=== PATIENT | female | born 1945 | race Caucasian/White ===

== ENCOUNTER 2017-10-17 08:08 | Inpatient (IN) | payer OTHER, MEDICARE ==
[~2017-10-17] VITALS: Ht 167.6 cm; Wt 57.6 kg
--- NOTE | 2017-10-17 08:20 | ED GENERAL ADULT ---
History of Present Illness General Chief Complaint: Nausea, Vomiting, Diarrhea Stated Complaint: NAUSEA Source: patient, EMS Exam Limitations: no limitations Vital Signs & Intake/Output Vital Signs & Intake/Output Vital Signs Date Time Temp Pulse Resp B/P B/P Pulse O2 O2 Flow FiO2 Mean Ox Delivery Rate 10/17 1415 97.8 85 20 184/91 95 Room Air 10/17 1138 170/90 10/17 1118 97.6 72 22 193/98 94 Room Air 10/17 0932 94 Room Air 10/17 0813 77 16 188/91 93 Room Air Allergies Coded Allergies: Penicillins (UNKNOWN 10/17/17) Reconcile Medications Ascorbic Acid (Vitamin C) 1,000 MG TABLET 1 TAB PO D SUPPLEMENTAL (Reported) Aspirin (Ecotrin*) 81 MG TABLET.DR 1 TAB PO DAILY HEART HEALTH (Reported) Calcium Carbonate/Vitamin D3 (Os-Lupillo 500+D3 Caplet) 500 MG-200 TABLET 1 TAB PO DAILY SUPPLEMENTAL (Reported) Cyanocobalamin (Vitamin B-12) (Vitamin B12) 2,500 MCG TABLET 1 TAB PO D SUPPLEMENTAL (Reported) Triage Note: PT BIBA FROM HOME C/C 1 WEEK HX OF NAUSEA AND INT VOMITING. DENIES C/P, SOB, OR ABD PAIN. PT STATES SHE HAS NOT BEEN TO A MEDICAL PROVIDER IN OVER 20 YEARS, NO KNOWN MEDICAL HX. PER PT SHE HAS NOT EATEN YET TODAY, FSG 216 PER EMS. Triage Nurses Notes Reviewed? yes HPI: Patient is a 72-year-old female with family history of diabetes in her son, but who has not visited a physician in many decades and thus reports no past medical history that she is aware of, who is brought in today by EMS with nausea and vomiting. She denies any saroj chest pain, dyspnea, diaphoresis, chest pressure , or any other classically cardiac features, and she also denies any true focal intra-abdominal pain. Upon my initial encounter the patient is clearly uncomfortable, vomiting into an emesis bag. Past the symptoms mentioned above, she is unable to give any further details of her HPI or review of systems secondary to her distress. Past History Travel History Traveled to [place] past 21 day No Medical History Any Pertinent Medical History? none Surgical History Surgical History: none Psychosocial History What is your primary language [place] Tobacco Use: Current Daily Use Daily Tobacco Use Amount/Type: => 5 Cigarettes daily Family History Hx Contributory? No Review of Systems Review of Systems Constitutional: Reports: weakness. Denies: chills, diaphoresis, fever, malaise. EENTM: Reports: no symptoms. Respiratory: Reports: no symptoms. Cardiovascular: Denies: chest pain, palpitations, peripheral edema, syncope. GI: Reports: nausea, vomiting. Denies: abdominal pain, bloating, constipation, diarrhea, distention, bowel incontinence. Genitourinary: Reports: no symptoms. Musculoskeletal: Reports: no symptoms. Skin: Reports: no symptoms. Neurological/Psychological: Reports: no symptoms. Hematologic/Endocrine: Reports: no symptoms. Immunologic/Allergic: Reports: no symptoms. All Other Systems: Reviewed and Negative Physical Exam Physical Exam General Appearance: moderate distress Comments: Gen.: Elderly female actively vomiting and in moderate distress secondary to back. HEENT: Cerumen impaction of the left auditory canal, normal right-sided auditory canal. Inspection of the head reveals a normocephalic cranium with no signs of trauma. Ophtho: Extraocular muscles are intact and pupils are equal and reactive to light bilaterally with no afferent pupillary defect. The sclera are noninjected , and there is no obvious discharge. Neck: The trachea is midline, there is no obvious asymmetry or mass over the thyroid, and there is no midline cervical spine tenderness Respiratory: The lungs are clear and equal to auscultation bilaterally without wheezes, rales, or rhonchi. The patient exhibits no signs of labored breathing. Cardiac: Regular rhythm and non-tachycardic without appreciable murmurs on auscultation. No obvious JVD. GI: Actively vomiting. Examination of the abdomen reveals no significant focal tenderness in any of the four quadrants. There is negative Aldana's sign, negative McBurney's point tenderness, negative Goodwin sign, negative Rodríguez-Crump sign, and no signs of peritonitis whatsoever on percussion or deep palpation. The skin is intact with no sign of trauma or infection. : Deferred Neuro: The patient is oriented to person, place, time, and situation, with no obvious focal motor deficits. There were no sensory deficits, and the patient exhibit purposeful movement of all 4 extremities. Cranial nerves II through XII are intact, and gait is normal. Behavioral: Calm and cooperative Dermatologic: Dermatologic examination reveals no diffuse rashes or exanthems, no petechiae, no ecchymoses, and no other signs of erythema or infection. Core Measures ACS in differential dx? Yes CVA/TIA Diagnosis: No Sepsis Present: No Sepsis Focused Exam Completed? Yes Progress Differential Diagnoses I considered the following diagnoses in my evaluation of the patient: Posterior circulation stroke, intracerebral hemorrhage, ischemic stroke, benign peripheral vertigo, Acute coronary syndrome, STEMI, non-STEMI, Prinzmetal angina, intra- abdominal pathology, biliary disease, pancreatitis, sepsis, among multiple other possibilities. Plan of Care: Orders Procedure Date/time Status URINALYSIS 10/17 814 Active TROPONIN LEVEL 10/17 814 Complete LIPASE 10/17 814 Complete COMPREHENSIVE METABOLIC PANEL 10/17 814 Complete CBC WITHOUT DIFFERENTIAL 10/17 814 Complete EKG 10/17 814 Active Current Medications Sig/Susanna Start time Last Medication Dose Stop Time Status Admin Diazepam 5 MG ONCE ONE 10/17 1214 CAN (Valium) 10/17 121 Laboratory Tests 10/17/17 0822: Anion Gap 11, Estimated GFR > 60, BUN/Creatinine Ratio 21.4, Glucose 198 H, Calcium 9.6, Total Bilirubin 0.6, AST 23, ALT 26, Alkaline Phosphatase 80, Troponin I < 0.01, Total Protein 7.5, Albumin 4.5, Globulin 3.0, Albumin/ Globulin Ratio 1.5, Lipase 71, CBC w Diff NO MAN DIFF REQ, RBC 5.03, MCV 85.8, MCH 30.0, MCHC 35.0, RDW 13.4, MPV 7.4, Gran % 72.5, Lymphocytes % 21.0, Monocytes % 4.6, Eosinophils % 1.3, Basophils % 0.6, Absolute Granulocytes 6.3, Absolute Lymphocytes 1.8, Absolute Monocytes 0.4, Absolute Eosinophils 0.1, Absolute Basophils 0 Initial ED EKG: ecg PERFORMED AT 8:25 am READILY 20 8 am, SINUS RHYTHM, INCOMPLETE RIGHT BUNDLE BRANCH BLOCK, pr, qrs, qtC INTERVALS ALL NORMAL, RATE 70 , NONSPECIFIC BIPHASIC t WAVES IN v4 THROUGH v6, NO PRIOR AVAILABLE FOR COMPARISON. Comments: Patient is elderly and presented for gradually worsening dizziness over the past week. I found this concerning for posterior circulation deficit. No prior stroke syndrome, however the patient had not been evaluated by a PCP in quite some time. Repeat laboratory studies and a CT scan which was unremarkable. Her examination was not illustrative enough to diagnose her with benign peripheral vertigo, so out of an abundance of caution I obtained a stat MRI of the brain. Thickly, these results were negative. I reassessment, despite a dosage of meclizine, the patient had no improvement in her symptoms. We found her unable to ambulate safely, or even sit up without profound symptoms. Patient ultimately required hospitalization for this reason, for possible ENT and physical therapy consultation to assist with diagnosis and Nirmala maneuver, respectively. Departure Departure Time of Disposition: 1834 Disposition: STILL A PATIENT Condition: Fair Clinical Impression Primary Impression: Vertigo Departure Forms: Customer Survey General Discharge Information Admission Note Spoke With: Jovita Amato MD Documentation of Exam: Documentation of any treatments & extenuating circumstances including Concerns Regarding Discharge (functional status, medication knowledge or non-compliance, living conditions, etc.) that warrant an admission rather than observation: I performed a detailed evaluation in the emergency department today including CT and MRI to rule out posterior circulation deficit as a cause of the patient's insidious dizziness. Safely, that workup was negative. However, despite meclizine trials, the patient was completely unable to sit up let alone ambulate at reassessment. I feel that she poses an unacceptably high risk of fall with secondary traumatic injury if she were to be discharged home, and thus the patient was hospitalized for further medical care. Critical Care Note Critical Care Note Critical Care Time: 30-74 min Comments: Critical care time spent > 25 minutes. The patient was suffering from a critical illness that acutely impairs one or more vital organ systems and there is a high probability of imminent or life threatening deterioration in the patient's condition. During this time I was personally involved in activities including direct delivery of medical care, consulting multiple specialists, and decision making of high complexity to assess, manipulate, and support vital organ system failure (in this case, ruling out acute CVA with advanced imaging in the ED) and /or to prevent further life threatening deterioration of the patient's condition. The failure to initiate these interventions on an urgent basis would likely result in sudden, clinically significant or life threatening deterioration in the patient's condition.
[2017-10-17 08:32] LABS: ABSOLUTE BASOPHIL COUNT 0 /CUMM (0.0-0.2); ABSOLUTE EOSINOPHIL COUNT 0.1 /CUMM (0.0-0.7); ABSOLUTE GRANULOCYTE CT 6.3 /CUMM (1.4-6.5); ABSOLUTE LYMPH COUNT 1.8 /CUMM (1.2-3.4); ABSOLUTE MONOCYTE COUNT 0.4 /CUMM (0.10-0.60); BASOPHIL % 0.6 % (0.0-2.0); EOSINOPHIL % 1.3 % (0-5); GRANULOCYTE % 72.5 % (42.2-75.2); HEMATOCRIT 43.2 % (37-47); MEAN CORPUSCULAR VOLUME 85.8 FL (81.0-99.0); MEAN PLATELET VOLUME 7.4 FL (7.4-10.4); PLATELET COUNT 237 /CUMM (130-400); RBC DISTRIBUTION WIDTH 13.4 % (11.5-14.5); RED BLOOD CELL CT 5.03 /CUMM (4.20-5.40); WHITE BLOOD CELL COUNT 8.6 /CUMM (4.8-10.8)
--- NOTE | 2017-10-17 09:03 | RADIOLOGY REPORT ---
EXAMINATION: XR CHEST CLINICAL INFORMATION: Nausea. COMPARISON: None TECHNIQUE: 2 views of the chest were obtained. FINDINGS: Both lungs are fairly well-expanded and clear. The heart size and pulmonary vascularity is normal. No gross bony abnormality seen. IMPRESSION: Unremarkable chest exam.
[2017-10-17] MEDS ORDERED: VITAMIN C1000 M4 PO (11:22)
[2017-10-17] MEDS ORDERED: ASPIRIN EC81 M1 PO (11:22)
[2017-10-17] MEDS ORDERED: OS-CAL 500+D31 EAC1 PO (11:23)
[2017-10-17] MEDS ORDERED: VITAMIN B122500 MC1 PO (11:24)
--- NOTE | 2017-10-17 15:08 | CT SCAN REPORT ---
EXAMINATION: CT HEAD WITHOUT CONTRAST CLINICAL INFORMATION: Gradually worsening dizziness. COMPARISON: None. TECHNIQUE: Contiguous axial imaging was performed from the skull base to vertex without intravenous administration of contrast. DLP: 593.93 mGy-cm FINDINGS: Multiple metallic streaking artifacts from the earrings limit the evaluation on few of the images at the skull base. No acute intracranial hemorrhage, midline shift or mass effect is noted. There is no evidence of acute territorial infarction. Menon to white matter differentiation is well preserved. No abnormal extra-axial fluid collection. There is mild global volume loss with proportionate dilatation of the ventricles and cortical sulci. No hydrocephalus. A small hypodensity noted in the right frontal periventricular white matter (series 2 image 30) likely representing sequela of prior vascular insult. Mild periventricular white matter low-attenuation changes are noted reflecting sequela of chronic microangiopathy. The visualized paranasal sinuses and mastoid air cells are well aerated. The osseous calvarium is intact. IMPRESSION: No acute intracranial abnormality. 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
--- NOTE | 2017-10-17 18:18 | MRI REPORT ---
EXAMINATION: MR BRAIN WITHOUT AND WITH CONTRAST CLINICAL INFORMATION: 72-year-old woman with dizziness. COMPARISON: 10/17/[address] TECHNIQUE: MRI of the brain was obtained using routine sequences before and after the intravenous administration of 6 mL of Gadavist. FINDINGS: There is a nearly 2 cm heavily calcified mixed signal intensity lesion in the left cerebellum with associated enhancement, presumably representing a cavernous angioma, perhaps with a small nearby developmental venous anomaly. There is some surrounding gliotic change with atrophy of the left middle cerebellar peduncle, perhaps due to prior hemorrhage. Moderate chronic microvascular ischemic changes are seen throughout the supratentorial white matter with an area of chronic lacunar infarction in the right frontal lobe. The ventricles and sulcal spaces are mildly prominent due to chronic volume loss. No focal reduced diffusion is seen to suggest acute or subacute cerebral ischemia. No midline shift or extra-axial collection is visualized. The ventricles and sulcal spaces appear normal. Normal arterial and venous vascular flow voids are present. The paranasal sinuses are well aerated. IMPRESSION: No evidence of acute cerebral ischemia or hemorrhage. Chronic changes as described.
--- NOTE | 2017-10-17 19:35 | History & Physical ---
General Information and HPI MD Statement: I have seen and personally examined CHILO PATEL and documented this H&P. The patient is a 72 year old F who presented with a patient stated chief complaint of [nausea and vomiting]. Source of Information: patient, EMS Exam Limitations: no limitations History of Present Illness: Patient is 72 F reporting no PMH (as never saw a doctor for long time) was BIBA to the ED with CC of nausea, vomiting and diarrhea. Allergies/Medications Allergies: Coded Allergies: Penicillins (UNKNOWN 10/17/17) Home Med list Ascorbic Acid (Vitamin C) 1,000 MG TABLET 1 TAB PO D SUPPLEMENTAL (Reported) Aspirin (Ecotrin*) 81 MG TABLET.DR 1 TAB PO DAILY HEART HEALTH (Reported) Calcium Carbonate/Vitamin D3 (Os-Lupillo 500+D3 Caplet) 500 MG-200 TABLET 1 TAB PO DAILY SUPPLEMENTAL (Reported) Cyanocobalamin (Vitamin B-12) (Vitamin B12) 2,500 MCG TABLET 1 TAB PO D SUPPLEMENTAL (Reported) Past History Travel History Traveled to [place] past 21 day No Surgical History Surgical History: none Assessment/Plan Assessment: VS, Ph Ex at admission: Labs at admission: Imagings at admission: Patient was admitted to telemetry floor for management of following conditions: Core Measures/Misc (02/13) Cerebrovascular Accident CVA/TIA Diagnosis: No
--- NOTE | 2017-10-17 20:45 | History & Physical ---
Ulices WHITLOCK,Diann 10/17/172044: General Information and HPI MD Statement: I have seen and personally examined CHILO PATEL and documented this H&P. The patient is a 72 year old F who presented with a patient stated chief complaint of [nausea and vomiting]. Source of Information: patient, EMS Exam Limitations: no limitations History of Present Illness: 72 years old female with no known PMH who presents to [facility] brought in by her son c/o of nausea, vomiting. The patient was very sedated and sleepy during the encounter as she recieved a dose of IV Ativan 2 mg IV in the ED. The patient mentioned that she was in her usual state of health until 2 days ago when she noticed loss of hearing in the left ear associated with ringing which is started on the left ear and then she felt that in the right ear. She was trying to clean her ears using cotton balls and clinics at that time she denies any discharge or ear ache or fever or chills. Today while the patient was preparing lunch she did not feel well she started. feeling increasingly dizzy, vomited a few times she also reports feeling spinning of her surroundings which improved when she lie down and when she closes her eyes is not related to changes of head position. Patient also reports runny nose for the past few days which she she thinks is due to allergy. Patient denies any fever, chills, chest pain, cough, diarrhea or constipation. She also denies any focal weakness or numbness. The patient denies any past medical history however she reports having gamma knife surgery in year [place] in 2011 but she cannot recall why. She lives home with her son, independent at baseline, reports smoking 1 pack of cigarettes daily for 15 years, occasional alcohol use, denies recreational drug use ED course: Vital signs on admission: Blood pressure 188/91, pulse 77, respiratory 16, pulse ox 93 on room air Labs on admission: CBCT was within normal limits,bep shows sodium 142, potassium 3.9, BUN 15, creatinine 0.7, glucose 198, AST 23, ALT 26, troponin less than 0.01, lipase 71, UA showed urine protein 100, urine ketones 15, few bacteria Head MRI:No evidence of acute cerebral ischemia or hemorrhage. Chronic changes as described. Head CT:No acute intracranial abnormality. 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 Chest x-ray:Unremarkable chest exam. Patient received 1 dose of IV Ativan 2 mg, meclizine, Zofran 4 mg IV 2 Allergies/Medications Allergies: Coded Allergies: Penicillins (UNKNOWN 10/17/17) Home Med list Ascorbic Acid (Vitamin C) 1,000 MG TABLET 1 TAB PO D SUPPLEMENTAL (Reported) Aspirin (Ecotrin*) 81 MG TABLET.DR 1 TAB PO DAILY HEART HEALTH (Reported) Calcium Carbonate/Vitamin D3 (Os-Lupillo 500+D3 Caplet) 500 MG-200 TABLET 1 TAB PO DAILY SUPPLEMENTAL (Reported) Cyanocobalamin (Vitamin B-12) (Vitamin B12) 2,500 MCG TABLET 1 TAB PO D SUPPLEMENTAL (Reported) Past History Travel History Traveled to [place] past 21 day No Surgical History Surgical History: none Past Family/Social History Family History Relations & Conditions if any MOTHER FATHER Relation not specified for: FH: breast cancer FH: heart attack Psychosocial History Where do you live? Home Who Do You Live With? child Smoking Status: Current Everyday Smoker ETOH Use: occasional use Illicit Drug Use: denies illicit drug use Functional Ability ADLs Independent: dressing, eating, toileting, bathing. Ambulation: independent IADLs Independent: shopping, housework, finances, food prep, telephone, transportation , medication admin. Review of Systems Review of Systems Constitutional: Reports: malaise. Denies: chills, diaphoresis, fever. EENTM: Reports: hearing changes, nasal congestion. Denies: blurred vision, double vision, eye pain, ear discharge, ear pain, ear redness, throat pain. Cardiovascular: Denies: chest pain, edema, orthopena, palpitations, peripheral edema. Respiratory: Denies: no symptoms. GI: Denies: no symptoms. Genitourinary: Denies: no symptoms. Neurological/Psychological: Denies: other. Exam & Diagnostic Data Last 24 Hrs of Vital Signs/I&O Vital Signs Date Time Temp Pulse Resp B/P B/P Pulse O2 O2 Flow FiO2 Mean Ox Delivery Rate 10/17 2214 98.8 97 18 120/80 94 10/17 2106 98.8 100 16 157/67 95 Room Air 10/17 1922 98.3 93 16 172/78 95 Room Air 10/17 1415 97.8 85 20 184/91 95 Room Air 10/17 1138 170/90 10/17 1118 97.6 72 22 193/98 94 Room Air 10/17 0932 94 Room Air 10/17 0813 77 16 188/91 93 Room Air Intake & Output 10/17 1600 10/17 0800 10/17 0000 Intake Total 0 Output Total Balance 0 Intake, Oral 0 Patient 145 lb Weight Weight Reported by Patient Measurement Method Physical Exam General Appearance Cooperative HEENT Atraumatic, PERRLA, Mucous Membr. moist/pink, BILATERAL OPTHALMOPLEGIAN AND NYSTAGMUS Neck Supple, No JVD Cardiovascular Normal S1, Normal S2, No Murmurs Lungs Clear to Auscultation Abdomen Normal Bowel Sounds, Soft, No Tenderness Neurological Normal Speech, Strength at 5/5 X4 Ext, Normal Tone, Sensation Intact, NYSTAGMUS AND OPHTHALMOPLEGIA, DYSMETRIA , Extremities No Clubbing, No Cyanosis, Normal Pulses Vascular Normal Pulses Assessment/Plan Assessment: 72 years old female with no known PMH who presents to [facility] brought in by her son c/o of nausea, vomiting. The patient was very sedated and sleepy during the encounter as she recieved a dose of IV Ativan 2 mg IV in the ED. The patient mentioned that she was in her usual state of health until 2 days ago when she noticed loss of hearing in the left ear associated with ringing which is started on the left ear and then she felt that in the right ear. It was associated with nausea, vomiting, sense of spinning of the room. Patient also has history of runny nose for the past few days. She denies any fever or chills. Most likely her symptoms are due to acute vestibular neuritis Problem list: Vertigo lkely secondary to acute vestibulat neuritis) Plan: Admit to general medicine floor Vitals every shift Fall precautions Continue meclizine Start prednisone 60 mg p.o. daily for a quick taper Obtain medical record from the [facility] OT/PT eval for discharge planning Follow-up on U tox and alcohol level F/U on HbA1c, Vit B12, folic acid, VDRL CIWA monitoring Patient is full code Regular diet DVT prophylaxis with Lovenox As Ranked By This Provider Problem List: 1. Vertigo Core Measures/Misc (02/13) Cerebrovascular Accident CVA/TIA Diagnosis: No Mehdi Teixeira MD 10/17/172120: Core Measures/Misc (02/13) Acute Coronary Syndrome ACS Diagnosis: No Congestive Heart Failure Congestive Heart Failure Diagnosis No Cerebrovascular Accident CVA/TIA Diagnosis: No VTE (View Protocol) VTE Risk Factors Age>40 No Mechanical VTE Prophylaxis d/t N/A MechProphylax Ordered No VTE Pharm Prophylaxis d/t NA PharmProphylax ordered Sepsis (View protocol) Sepsis Present: No Resident Review Statement Resident Statement: examined this patient, discussed with program management intern, agreed with program management intern, reviewed EMR data (avail), discussed with nursing, reviewed images, amended to note Other Findings: 72 yo F with no known pmh is here for nausea, vomiting, and dizziness since two days. At the time of interview, she had received medications to treat her vertigo already so was drowsy towards the end, but comprehended the questions. Per patient, she was in her usual state of health until two days ago, when she felt "funny" in her left ear, had decreased hearing on left side, with ringing sensation, and earlier today she felt nauseaous after cooking at home, vomited twice (at least), and dizzy with feeling of room spinning around, better when she closed her eyes, no relation with position. She mentioned that she had runny nose (flu-like symptoms) few weeks ago. She was brought to the ED by her son, where she received Meclizine, and later Ativan IV (pharmacy did not have IV Diazepam per EMR), which helped her to some extent. Imaging was negative for acute stroke or mass, but she mentioned that she had undergone "gamma-knife procedure" at [facility] (?no documentation). Vitals initially high BP now normal, labs WNL, U tox normal, (EtOH level pending ), PE was significant for Right horizoltal nystagmus, no change with position, and dysmetria (finger nose test, but good propioception), normal heel knee test, and normal disdiadochokinesia, neuro normal otherwise, gait not examined. CVS, RS normal. She was at very high fall risk while trying to walk, so was admitted to the general medical floor for the management of following issues: #Acute vestibular neuritis Her symptoms are suggestive more of acute vestibular neuritis rather than BPPV, or acute stroke, so we will start her on oral prednisone (total ten days, day 1- 5 60 mg, then serially 40mg, 30 mg, 20mg, 10mg, 5mg). Meclizine started given her persistent symptoms, which is usually helpful for the short term, but if persistent symptoms despite meclizine after 48 hrs, ENT eval is warranted. Given her history, BPPV is less likely, also after meclizine, it interferes with results of PT eval. She would benefit from PT eval for discharge recs though. #Will check her HbA1c, Vit B12, folic acid, VDRL to rule out other causes that can cause neuropathy. #Housekeeping Diet: Heart healthy diet DVT ppx: SQ Lovenox Code status: Full code ICE contact: Her son (Joaquin Patel), tel no. in EMR Jovita Amato 10/18/17 0501: Attending MD Review Statement Attending Statement Attending MD Statement: examined this patient, discuss w/resident/PA/FRENCH PROFESSOR, agreed w/resident/PA/FRENCH PROFESSOR, reviewed EMR data (avail), reviewed images, amended to note Attending Assessment/Plan: CC: Dizziness PMH: None Patient came to ER for 2 day history of nausea, vomiting, ringing in her left ear with mild hearing loss and spinning sensation. She denied any pain in a year , ear discharge, presyncopal episode or falls. She feels unsteady and dizzy and is not able to walk appropriately. Initially when she came to ER even moving her head was giving her dizziness. She had some runny nose last few days but denies any fever, chills, sore throat, cough, expectoration, diarrhea. Patient has not seen any physician in long time. Patient received 2 mg IV Ativan in ER, and currently very sleepy and difficult to elicit history. Vitals: Temperature 97.6, pulse 77, RR 16, blood pressure 188/91, saturating 93% on room air. On exam: A O 3, cooperative, no acute distress, nystagmus, patient has gaze abnormality, neck supple, JVD normal, no lymphadenopathy, mucosa moist, no focal neurological deficit, cerebellar signs negative, no dependent edema, no obvious skin rashes or inflammation CVS: S1-S2, RRR. RS: Clear to auscultate bilaterally. Abdomen: Soft, NT, ND, bowel sounds present. CXR: Unremarkable chest exam CT head: No acute intracranial abnormality. 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 MRI head: No evidence of acute cerebral ischemia or hemorrhage. Chronic changes as described. Assessment and plan 72 year old female with no previous past medical history, not seen any physician in a while [facility] for 2 day history of dizziness, spinning sensation, nausea, vomiting, tingling in her ear. She has nystagmus on examination but also has these abnormality otherwise complete neurological examination is unremarkable. According to ER notes initially she was severely dizzy even moving her head, she received Zofran, meclizine without relief. Later on she was given 2 mg of IV Ativan after that patient is very sleepy, it may be adding up to difficulty unsteady gaze, it is difficult to keep her awake throughout the conversation. I suspect patient has vestibular neuronitis. We'll continue meclizine, continue short course of oral prednisone, and reevaluate. + Vertigo: Suspected vascular neuronitis + Blood pressure is elevated but it could be one-time finding, we will follow closely - Admit to general medicine - Check U tox - Continue meclizine - Continue prednisone 40-60 mg per day for 5 days with taper - Check B12, HbA1c - Alcohol level - PT evaluation - DVT prophylaxis
[2017-10-17 22:14] VITALS: BP 120/80
--- NOTE | 2017-10-18 05:02 | Admission Certification ---
Admission Certification Certification Statement - As attending physician, I certify that at the time of - admission, based on clinical presentation, severity of - symptoms, need for further diagnostic testing and - therapeutic interventions, and risk of adverse outcomes - without in-hospital treatment, in my clinical assessment, - this patient requires an acute hospital stay for a minimum - of two nights or longer. I have also considered psychsocial - factors such as support system, advanced age, financial - issues, cognitive issues, and failed out-patient treatments, - past re-admission history, safety of patient, and lack of - compliance as applicable. Specific rationale supporting this admission is: Vertigo, suspected vestibular neuronitis
[2017-10-18 06:56] VITALS: BP 132/68
--- NOTE | 2017-10-18 07:22 | PN- Housestaff ---
Subjective Follow-up For: acute vestibulitis Subjective: Patient seen and examined. Sleeping was easily arousable. Reports continued dizziness, lightheadedness. She was reluctant to open her eyes or move her head because of vertigo like symptoms. Patient had recently worked with PT and Apley maneuver was done. Patient also reports being unsteady on her feet and feeling nauseous. Recent history of URI Review of Systems Constitutional: Reports: see HPI. Objective Last 24 Hrs of Vital Signs/I&O Vital Signs Date Time Temp Pulse Resp B/P B/P Pulse O2 O2 Flow FiO2 Mean Ox Delivery Rate 10/18 1000 97.0 80 20 130/70 95 Room Air 10/18 0656 97.9 73 16 132/68 95 Room Air 10/17 2214 98.8 97 18 120/80 94 10/17 2106 98.8 100 16 157/67 95 Room Air 10/17 1922 98.3 93 16 172/78 95 Room Air 10/17 1415 97.8 85 20 184/91 95 Room Air 10/17 1138 170/90 Intake & Output 10/18 1600 10/18 0800 10/18 0000 Intake Total 200 0 Output Total Balance 200 0 Intake, Oral 200 0 Patient 127 lb 127 lb Weight Weight Bed scale Measurement Method Physical Exam General Appearance: Alert, Oriented X3, Cooperative Cardiovascular: Normal S1, Normal S2 Lungs: Clear to Auscultation, Normal Air Movement Abdomen: Normal Bowel Sounds, Soft Neurological: Normal Speech, Strength at 5/5 X4 Ext, Normal Tone, Sensation Intact, Cranial Nerves 3-12 NL, Reflexes 2+, Horizontal nystagmus with fast component to left Extremities: No Cyanosis, No Edema, Normal Pulses Current Medications: Current Medications Sig/Susanna Start time Last Medication Dose Route Stop Time Status Admin Acetaminophen 650 MG Q6P PRN 10/17 2129 AC PO Acetaminophen 1,000 MG Q6P PRN 10/17 213 AC IV 10/18 2128 Aspirin Buffered 81 MG DAILY 10/18 09 AC 10/18 PO 0904 Diazepam 2 MG 4 TIMES/DAY PRN 10/18 1030 AC PO Diazepam 5 MG ONCE ONE 10/17 1930 DC IV 10/17 193 Diazepam 5 MG ONCE ONE 10/17 1215 CAN IV 10/17 1216 Enoxaparin Sodium 40 MG DAILY 10/18 09 AC 10/18 SC 0908 Lorazepam 2 MG ONE ONE 10/18 1999 DC 10/17 IV 10/17 Lorazepam 0 .STK-MED ONE 10/18 1955 DC .ROUTE Meclizine HCl 25 MG TID PRN 10/17 2229 AC 10/18 PO 0905 Meclizine HCl 0 .STK-MED ONE 10/17 1232 DC PO Meclizine HCl 25 MG ONCE ONE 10/17 1230 DC 10/17 PO 10/17 123 1231 Ondansetron HCl 4 MG ONCE ONE 10/18 1030 DC PO 10/18 1031 Ondansetron HCl 0 .STK-MED ONE 10/17 1232 DC .ROUTE Ondansetron HCl 4 MG ONCE ONE 10/17 1215 DC 10/17 IV 10/17 121 1231 Prednisone 60 MG DAILY 10/17 2229 AC 10/18 PO 10/21 0901 0904 Thiamine HCl 100 MG DAILY 10/19 0900 AC PO Thiamine HCl 200 MG ONCE ONE 10/18 0400 DC 10/18 PO 10/18 040 0522 Last 24 Hrs of Lab/Flip Results Last 24 Hrs of Labs/Mics: Laboratory Tests 10/18/17 0614: Anion Gap 12, Estimated GFR > 60, BUN/Creatinine Ratio 26.7 H, CBC w Diff NO MAN DIFF REQ, RBC 4.99, MCV 87.5, MCH 29.6, MCHC 33.8, RDW 13.3, MPV 8.0, Gran % 69.8, Lymphocytes % 22.0, Monocytes % 6.7, Eosinophils % 1.1, Basophils % 0.4, Absolute Granulocytes 6.3, Absolute Lymphocytes 2.0, Absolute Monocytes 0.6, Absolute Eosinophils 0.1, Absolute Basophils 0 10/17/17 1856: Urine Opiates Screen < 100, Methadone Screen < 40, Barbiturate Screen < 60, Ur Phencyclidine Scrn < 6.00, Amphetamines Screen < 100, U Benzodiazepines Scrn < 85, Urine Cocaine Screen < 50, Urine Cannabis Screen < 5.00, Urinalysis MOD H, Urine Color YEL, Urine Clarity CLEAR, Urine pH 7.0, Ur Specific [place] 1.025, Urine Protein 100 H, Urine Ketones 15 H, Urine Nitrite NEG, Urine Bilirubin NEG, Urine Urobilinogen 0.2, Ur Leukocyte Esterase NEG, Ur Microscopic SEDIMENT EXAMINED, Urine RBC 3-5, Urine WBC 1-3 H, Ur Epithelial Cells FEW, Urine Bacteria FEW H, Urine Mucus MOD H, Urine Hemoglobin NEG, Urine Glucose NEG Assessment/Plan Assessment: Patient is 72-year-old female with past medical history. She presented to [place] [facility] because of 2 day history of dizziness, spinning sensation, nausea, vomiting, tingling in her ear. The patient has been admitted to general medicine floor was being treated and evaluated for following conditions #Acute vertigo likely 2/2 acute vestibulitis (recent history of URI) -Antivertn 25 mg 3 times a day -Diazepam 2 mg 4 times a day as needed -Zofran to control nausea -Prednisone 60 mg daily for 5 days and then begin taper after that -Follow precaution -Continue Apley maneuver with PT #High BP readings intially on Auto cuff Manual readings within normal limits #Regular diet/DVT prophylaxis with Alps and Lovenox/FC Problem List: 1. Vertigo Pain Ratin Pain Location: none Pain Goal: Pain 4 or less Pain Plan: prn Tomorrow's Labs & Rationales: none
[2017-10-18 08:52] LABS: ABSOLUTE BASOPHIL COUNT 0 /CUMM (0.0-0.2); ABSOLUTE EOSINOPHIL COUNT 0.1 /CUMM (0.0-0.7); ABSOLUTE GRANULOCYTE CT 6.3 /CUMM (1.4-6.5); ABSOLUTE MONOCYTE COUNT 0.6 /CUMM (0.10-0.60); BASOPHIL % 0.4 % (0.0-2.0); EOSINOPHIL % 1.1 % (0-5); GRANULOCYTE % 69.8 % (42.2-75.2); HEMATOCRIT 43.6 % (37-47); MEAN CORPUSCULAR HGB 29.6 PG (27.0-31.0); MEAN CORPUSCULAR HGB CONC 33.8 G/DL (33.0-37.0); MEAN CORPUSCULAR VOLUME 87.5 FL (81.0-99.0); PLATELET COUNT 253 /CUMM (130-400); RBC DISTRIBUTION WIDTH 13.3 % (11.5-14.5); RED BLOOD CELL CT 4.99 /CUMM (4.20-5.40)
[2017-10-18 10:00] VITALS: BP 130/70
--- NOTE | 2017-10-18 10:44 | PN- Att Addend ---
Attending Addendum Attending Brief Note Patient seen and examined. Plan of care discussed with the medical team and the patient. Available lab work and radiology test reports were reviewed. Patient continues to feel dizzy lightheaded and has vertiginous symptoms. She underwent operative note this morning. She is reluctant to open her eyes or move her head. She denies any headache or blurred vision and has no focal neuro deficit. Exam: General: Patient awake alert oriented without any distress but likes to keep her head steady CVS: S1 plus S2 without any murmur or gallops Chest: Few scattered crepitation without any wheeze. There is no respiratory distress. Abdomen: Soft non-tender, bowel sound present, no guarding or rebound OWNER: Awake alert oriented without any focal neuro deficit and follows commands appropriately; horizontal nystagmus is noted with fast component to the left Extremities: No edema; no clubbing or cyanosis noted Assessment * Acute vertigo with positional features, likely acute vestibulitis given recent history of URI * Uncontrolled hypertension- improved Plan * Add low-dose Ativan 0.5 mg by mouth 3 times a day to treat dizziness symptoms * Continue Apley maneuver by PT * Continue prednisone 60 mg daily for 5 days and then will taper * continue Antivert * Fall precautions * No the patient is still grieving her last January. Patient may benefit from joining a bereavement support group * No need to check labs tomorrow Current Medications Sig/Susanna Start time Last Medication Dose Route Stop Time Status Admin Acetaminophen 650 MG Q6P PRN 10/17 2130 AC PO Acetaminophen 1,000 MG Q6P PRN 10/17 2130 AC IV 10/18 2128 Aspirin Buffered 81 MG DAILY 10/18 09 AC 10/18 PO 0904 Diazepam 2 MG 4 TIMES/DAY PRN 10/18 1030 AC PO Diazepam 5 MG ONCE ONE 10/17 1930 DC IV 10/17 193 Diazepam 5 MG ONCE ONE 10/17 1215 CAN IV 10/17 1216 Enoxaparin Sodium 40 MG DAILY 10/18 09 AC 10/18 SC 0908 Lorazepam 2 MG ONE ONE 10/18 1999 DC 10/17 IV 10/17 Lorazepam 0 .STK-MED ONE 10/18 1955 DC .ROUTE Meclizine HCl 25 MG TID PRN 10/17 2230 AC 10/18 PO 09 Meclizine HCl 0 .STK-MED ONE 10/17 1232 DC PO Meclizine HCl 25 MG ONCE ONE 10/17 1230 DC 10/17 PO 10/17 1231 1231 Ondansetron HCl 4 MG ONCE ONE 10/18 1030 DC PO 10/18 1031 Ondansetron HCl 0 .STK-MED ONE 10/17 1232 DC .ROUTE Ondansetron HCl 4 MG ONCE ONE 10/17 1215 DC 10/17 IV 10/17 1216 1231 Prednisone 60 MG DAILY 10/17 2230 AC 10/18 PO 10/21 0901 0904 Thiamine HCl 100 MG DAILY 10/19 0900 AC PO Thiamine HCl 200 MG ONCE ONE 10/18 0400 DC 10/18 PO 10/18 040 0522 Laboratory Tests 10/18/17 0614: Anion Gap 12, Estimated GFR > 60, BUN/Creatinine Ratio 26.7 H, CBC w Diff NO MAN DIFF REQ, RBC 4.99, MCV 87.5, MCH 29.6, MCHC 33.8, RDW 13.3, MPV 8.0, Gran % 69.8, Lymphocytes % 22.0, Monocytes % 6.7, Eosinophils % 1.1, Basophils % 0.4, Absolute Granulocytes 6.3, Absolute Lymphocytes 2.0, Absolute Monocytes 0.6, Absolute Eosinophils 0.1, Absolute Basophils 0 10/17/17 1856: Urine Opiates Screen < 100, Methadone Screen < 40, Barbiturate Screen < 60, Ur Phencyclidine Scrn < 6.00, Amphetamines Screen < 100, U Benzodiazepines Scrn < 85, Urine Cocaine Screen < 50, Urine Cannabis Screen < 5.00, Urinalysis MOD H, Urine Color YEL, Urine Clarity CLEAR, Urine pH 7.0, Ur Specific [place] 1.025, Urine Protein 100 H, Urine Ketones 15 H, Urine Nitrite NEG, Urine Bilirubin NEG, Urine Urobilinogen 0.2, Ur Leukocyte Esterase NEG, Ur Microscopic SEDIMENT EXAMINED, Urine RBC 3-5, Urine WBC 1-3 H, Ur Epithelial Cells FEW, Urine Bacteria FEW H, Urine Mucus MOD H, Urine Hemoglobin NEG, Urine Glucose NEG 10/17/17 0825: RPR Titer/FTA Pending 10/17/17 0822: Anion Gap 11, Estimated GFR > 60, BUN/Creatinine Ratio 21.4, Glucose 198 H, Hemoglobin A1c 5.8, Calcium 9.6, Total Bilirubin 0.6, AST 23, ALT 26, Alkaline Phosphatase 80, Troponin I < 0.01, Total Protein 7.5, Albumin 4.5, Globulin 3.0, Albumin/Globulin Ratio 1.5, Lipase 71, Vitamin B12 > 1000 H, Folate 9.0, CBC w Diff NO MAN DIFF REQ, RBC 5.03, MCV 85.8, MCH 30.0, MCHC 35.0, RDW 13.4, MPV 7.4 , Gran % 72.5, Lymphocytes % 21.0, Monocytes % 4.6, Eosinophils % 1.3, Basophils % 0.6, Absolute Granulocytes 6.3, Absolute Lymphocytes 1.8, Absolute Monocytes 0.4, Absolute Eosinophils 0.1, Absolute Basophils 0, Serum Alcohol < 10.0 Vital Signs Date Time Temp Pulse Resp B/P B/P Pulse O2 O2 Flow FiO2 Mean Ox Delivery Rate 10/18 1000 97.0 80 20 130/70 95 Room Air 10/18 0656 97.9 73 16 132/68 95 Room Air 10/17 2214 98.8 97 18 120/80 94 10/17 2106 98.8 100 16 157/67 95 Room Air 10/17 1922 98.3 93 16 172/78 95 Room Air 10/17 1415 97.8 85 20 184/91 95 Room Air 10/17 1138 170/90 10/17 1118 97.6 72 22 193/98 94 Room Air Intake & Output 10/18 1600 10/18 0800 10/18 0000 Intake Total 200 0 Output Total Balance 200 0 Intake, Oral 200 0 Patient 127 lb 127 lb Weight Weight Bed scale Measurement Method MRI at the time of admission did not show any acute stroke CT scan of the head showed some chronic vascular changes
[2017-10-18 14:00] VITALS: BP 140/80
[2017-10-18 18:00] VITALS: BP 142/80
[2017-10-18 22:05] VITALS: BP 140/82
[2017-10-19 06:20] VITALS: BP 144/76
--- NOTE | 2017-10-19 07:13 | PN- Housestaff ---
Subjective Follow-up For: Acute intertrigo secondary to vestibular neuritis versus labyrinthitis Subjective: Patient seen and examined. She reports improvement in her symptoms. Wants to be discharged home. Patient was evaluated by ENT Dr. Kuhn believed that patient is safe to be discharged with follow-up tomorrow in her office Review of Systems Constitutional: Reports: see HPI. Objective Last 24 Hrs of Vital Signs/I&O Vital Signs Date Time Temp Pulse Resp B/P B/P Pulse O2 O2 Flow FiO2 Mean Ox Delivery Rate 10/19 1510 98.7 99 20 120/80 95 10/19 0620 97.6 87 18 144/76 95 Room Air 10/18 2205 96.6 92 20 140/82 95 Room Air 10/18 1800 98.1 100 19 142/80 96 Room Air Intake & Output 10/19 1600 10/19 0800 10/19 0000 Intake Total 500 480 480 Output Total Balance 500 480 480 Intake, Oral 500 480 480 Physical Exam General Appearance: Alert, Oriented X3, Cooperative Cardiovascular: Normal S1, Normal S2 Lungs: Clear to Auscultation Abdomen: Normal Bowel Sounds Neurological: Normal Speech Current Medications: Current Medications Sig/Susanna Start time Last Medication Dose Route Stop Time Status Admin Acetaminophen 650 MG Q6P PRN 10/17 2129 AC PO Acetaminophen 1,000 MG Q6P PRN 10/17 213 DC IV 10/18 2128 Aspirin Buffered 81 MG DAILY 10/18 899 10/19 PO 0952 Diazepam 2 MG 4 TIMES/DAY PRN 10/18 1030 AC PO Enoxaparin Sodium 40 MG DAILY 10/18 09 10/19 SC 0953 Meclizine HCl 25 MG TID PRN 10/17 223 10/18 PO 0905 Patient Medication 1 ED ONE ONE 10/19 1145 [facility] ED 10/19 1146 Patient Medication 1 ED ONE ONE 10/18 1715 [place] 10/18 [facility] ED 10/18 171 1956 Prednisone 40 MG DAILY 10/20 09 AC PO 10/21 2100 Prednisone 60 MG DAILY 10/17 2229 [place] 10/19 PO 10/21 0901 0951 Thiamine HCl 100 MG DAILY 10/19 09 AC 10/19 PO 0952 Assessment/Plan Assessment: Patient is 72-year-old female with past medical history. She presented to [facility] because of 2 day history of dizziness, spinning sensation, nausea, vomiting, tingling in her ear. The patient has been admitted to general medicine floor was being treated and evaluated for following conditions #Acute vertigo likely 2/2 acute vestibulitis (recent history of URI) -Antivertn 25 mg 3 times a day -Diazepam 2 mg BID as needed -Zofran to control nausea -Prednisone taper -Follow precaution, Ambulate with assist, patient will be provided with a walker for unsteadiness of gait. Patient lives with her son has been counselled for Fall precautions -ENT follow-up plan for Dr. Kuhn on 10/20 in the morning. #High BP readings intially on Auto cuff Manual readings within normal limits #Regular diet/DVT prophylaxis with Alps and Lovenox/F Problem List: 1. Vertigo Pain Ratin Pain Location: na Pain Goal: Pain 4 or less Pain Plan: na Tomorrow's Labs & Rationales: none
[2017-10-19] MEDS ORDERED: DIAZEPAM2 M1 PO (10:58)
[2017-10-19] MEDS ORDERED: PREDNISONE10 M2 PO ×2 (10:58→16:28)
[2017-10-19] MEDS ORDERED: MECLIZINE HCL25 MG PO ×2 (10:58→16:28)
--- NOTE | 2017-10-19 11:00 | Patient Discharge Instructions ---
Discharge Instructions General Discharge Information You were seen/treated for: Acute vertigo likely secondary to acute vestibulitis Special Instructions: -Please follow up with primary care provider within 1 week of discharge -Please follow up with ENT Dr. Ang on 10/20 Diet Continue normal diet: Yes Activity Activity Self Limited: Yes Acute Coronary Syndrome Inclusion Criteria At DC or during hospital stay patient has or had the following: ACS DIAGNOSIS No Discharge Core Measures Meds if any: Prescribed or Continued at Discharge Meds if any: NOT Prescribed or Continued at Discharge Congestive Heart Failure Inclusion Criteria At DC or during hospital stay patient has or had the following: CHF DIAGNOSIS No Discharge Core Measures Meds if any: Prescribed or Continued at Discharge Meds if any: NOT Prescribed or Continued at Discharge Cerebrovascular accident Inclusion Criteria At DC or during hospital stay patient has or had the following: CVA/TIA Diagnosis No Discharge Core Measures Meds if any: Prescribed or Continued at Discharge Meds if any: NOT Prescribed or Continued at Discharge Venous thromboembolism Inclusion Criteria VTE Diagnosis No VTE Type NONE VTE Confirmed by (Test) NONE Discharge Core Measures - Per Current guidelines, there needs to be overlap - treatment for the first 5 days of Warfarin therapy. - If discharged on Warfarin prior to 5 days of - overlap therapy, the patient will need to be - assessed for post discharge needs including - *Post discharge parental anticoagulation - *Warfarin and/or parental anticoagulation education - *Follow up date to check INR post discharge At least 5 days overlap therapy as Inpatient No Meds if any: Prescribed or Continued at Discharge Note: Overlap Therapy is Warfarin and Anticoagulant Meds if any: NOT Prescribed or Continued at Discharge
--- NOTE | 2017-10-19 11:39 | PN- Att Addend ---
Attending Addendum Attending Brief Note Patient seen and examined. Plan of care discussed with the medical team and the patient. Available lab work and radiology test reports were reviewed. Patient reports the improvement in her dizziness. She was able to use the bathroom on her own. She underwent Apley maneuver yesterday by physical therapy. She reports photophobia today. She denies any headache or blurred vision and has no focal neuro deficit. Exam: General: Patient awake alert oriented without any distress wearing dark glasses CVS: S1 plus S2 without any murmur or gallops Chest: Few scattered crepitation without any wheeze. There is no respiratory distress. 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 She her the last January and she feels a being in hospital is very uncomfortable for her because it reminds her of her * Ambulate with assist and if patient steady she can be discharged home today; patient lives with her son Current Medications Sig/Susanna Start time Last Medication Dose Route Stop Time Status Admin Acetaminophen 650 MG Q6P PRN 10/170 AC PO Acetaminophen 1,000 MG Q6P PRN 10/17 2130 DC IV 10/18 2128 Aspirin Buffered 81 MG DAILY 10/18 09 AC 10/19 PO 0952 Diazepam 2 MG 4 TIMES/DAY PRN 10/18 1030 AC PO Enoxaparin Sodium 40 MG DAILY 10/18 09 AC 10/19 SC 0953 Meclizine HCl 25 MG TID PRN 10/17 2230 AC 10/18 PO 0905 Patient Medication 1 ED ONE ONE 10/18 1715 DC 10/18 Teaching ED 10/18 171 1956 Prednisone 60 MG DAILY 10/17 2230 AC 10/19 PO 10/21 0901 0951 Thiamine HCl 100 MG DAILY 10/19 09 AC 10/19 PO 0952 Laboratory Tests 10/18/17 0614: Anion Gap 12, Estimated GFR > 60, BUN/Creatinine Ratio 26.7 H, CBC w Diff NO MAN DIFF REQ, RBC 4.99, MCV 87.5, MCH 29.6, MCHC 33.8, RDW 13.3, MPV 8.0, Gran % 69.8, Lymphocytes % 22.0, Monocytes % 6.7, Eosinophils % 1.1, Basophils % 0.4, Absolute Granulocytes 6.3, Absolute Lymphocytes 2.0, Absolute Monocytes 0.6, Absolute Eosinophils 0.1, Absolute Basophils 0 10/17/17 1856: Urine Opiates Screen < 100, Methadone Screen < 40, Barbiturate Screen < 60, Ur Phencyclidine Scrn < 6.00, Amphetamines Screen < 100, U Benzodiazepines Scrn < 85, Urine Cocaine Screen < 50, Urine Cannabis Screen < 5.00, Urinalysis MOD H, Urine Color YEL, Urine Clarity CLEAR, Urine pH 7.0, Ur Specific [place] 1.025, Urine Protein 100 H, Urine Ketones 15 H, Urine Nitrite NEG, Urine Bilirubin NEG, Urine Urobilinogen 0.2, Ur Leukocyte Esterase NEG, Ur Microscopic SEDIMENT EXAMINED, Urine RBC 3-5, Urine WBC 1-3 H, Ur Epithelial Cells FEW, Urine Bacteria FEW H, Urine Mucus MOD H, Urine Hemoglobin NEG, Urine Glucose NEG 10/17/17 0825: RPR Titer/FTA NONREACTIVE 10/17/17 0822: Anion Gap 11, Estimated GFR > 60, BUN/Creatinine Ratio 21.4, Glucose 198 H, Hemoglobin A1c 5.8, Calcium 9.6, Total Bilirubin 0.6, AST 23, ALT 26, Alkaline Phosphatase 80, Troponin I < 0.01, Total Protein 7.5, Albumin 4.5, Globulin 3.0, Albumin/Globulin Ratio 1.5, Lipase 71, Vitamin B12 > 1000 H, Folate 9.0, CBC w Diff NO MAN DIFF REQ, RBC 5.03, MCV 85.8, MCH 30.0, MCHC 35.0, RDW 13.4, MPV 7.4 , Gran % 72.5, Lymphocytes % 21.0, Monocytes % 4.6, Eosinophils % 1.3, Basophils % 0.6, Absolute Granulocytes 6.3, Absolute Lymphocytes 1.8, Absolute Monocytes 0.4, Absolute Eosinophils 0.1, Absolute Basophils 0, Serum Alcohol < 10.0 Vital Signs Date Time Temp Pulse Resp B/P B/P Pulse O2 O2 Flow FiO2 Mean Ox Delivery Rate 10/19 0620 97.6 87 18 144/76 95 Room Air 10/18 2205 96.6 92 20 140/82 95 Room Air 10/18 1800 98.1 100 19 142/80 96 Room Air 10/18 1400 97.2 79 18 140/80 94 Room Air Intake & Output 10/19 1600 10/19 0800 10/19 0000 Intake Total 480 480 Output Total Balance 480 480 Intake, Oral 480 480
[2017-10-19 15:10] VITALS: BP 120/80
--- NOTE | 2017-10-19 15:37 | Cons- Ear,Nose&Throat ---
General Information and HPI Consulting Request Date of Consult: 10/19/17 Requested By: Zaid WHITLOCK,Sharri Reason for Consult: Dizziness, vertigo, hearing loss Source of Information: patient Exam Limitations: no limitations History of Present Illness: 72 years old female with no known PMH who presents to [facility] brought in by her son c/o of vertigo, nausea and vomiting. Initially patient to have intermittent left ear clogging about 1 month ago. Also noted to have intermittent off balance and dizziness. One week prior to admission patient that her dizziness intensified and she has been having intermittent vertigo. This was also accompanied by hearing loss and tinnitus in her left ear. She also right ear fullness. She was trying to clean her ears using cotton balls and clinics at that time she denies any discharge or ear ache or pain. There was no fever or chills. On the day of admission patient was preparing lunch she did not feel well she started feeling increasingly dizzy, vomited a few times she also reports feeling spinning of her surroundings which improved when she lie down and when she closed her eyes. Vertigo was not worse in positional head changes. Patient also reported runny nose for the past few days which she she thinks is due to allergy. The patient denies any past medical history however she reports having gamma knife surgery in [place] in 2011 but she cannot recall why. She lives home with her son, independent at baseline, reports smoking 1 pack of cigarettes daily for 15 years, occasional alcohol use, denies recreational drug use Allergies/Medications Allergies: Coded Allergies: Penicillins (UNKNOWN 10/17/17) Home Med List: Ascorbic Acid (Vitamin C) 1,000 MG TABLET 1 TAB PO D SUPPLEMENTAL (Reported) Aspirin (Ecotrin*) 81 MG TABLET.DR 1 TAB PO DAILY HEART HEALTH (Reported) Calcium Carbonate/Vitamin D3 (Os-Lupillo 500+D3 Caplet) 500 MG-200 TABLET 1 TAB PO DAILY SUPPLEMENTAL (Reported) Cyanocobalamin (Vitamin B-12) (Vitamin B12) 2,500 MCG TABLET 1 TAB PO D SUPPLEMENTAL (Reported) Diazepam 2 MG TABLET 1 TAB PO BID PRN VERTIGO TAKE NEEDED FOR VERTIGO Meclizine HCl 25 MG TABLET 1 TAB PO TID PRN VERTIGO Prednisone 10 MG TABLET 0 PO SEE ADMIN CRITERIA VERTIGO Current Medications: Current Medications Sig/Susanna Start time Last Medication Dose Route Stop Time Status Admin Acetaminophen 650 MG Q6P PRN 05/21 2130 AC PO Acetaminophen 1,000 MG Q6P PRN 10/17 213 DC IV 10/18 2128 Aspirin Buffered 81 MG DAILY 10/18 899 AC 10/19 PO 0952 Diazepam 2 MG 4 TIMES/DAY PRN 10/18 1030 AC PO Enoxaparin Sodium 40 MG DAILY 10/18 09 AC 10/19 SC 0953 Meclizine HCl 25 MG TID PRN 10/17 2229 10/18 PO 0905 Patient Medication 1 ED ONE ONE 10/19 1145 DC Teaching ED 10/19 1146 Patient Medication 1 ED ONE ONE 10/18 1715 DC 10/18 Teaching ED 10/18 1716 1956 Prednisone 40 MG DAILY 10/20 899 AC PO 10/21 2100 Prednisone 60 MG DAILY 10/17 2229 DC 10/19 PO 10/21 0901 0951 Thiamine HCl 100 MG DAILY 10/19 899 10/19 PO 0952 Past History Medical History Blood Transfusion Hx: No Neurological: NONE EENT: NONE Respiratory: NONE Gastrointestinal: NONE Hepatic: NONE Renal: NONE Musculoskeletal: NONE Psychiatric: NONE Endocrine: NONE Blood Disorders: NONE Cancer(s): NONE 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 Home Who Do You Live With? child Smoking Status: Current Everyday Smoker ETOH Use: occasional use Illicit Drug Use: denies illicit drug use Functional Ability ADLs Independent: dressing, eating, toileting, bathing. Ambulation: independent IADLs Independent: shopping, housework, finances, food prep, telephone, transportation , medication admin. Review of Systems Review of Systems: Noncontributory Exam & Diagnostic Data Vital Signs and I&O Vital Signs Date Time Temp Pulse Resp B/P B/P Pulse O2 O2 Flow FiO2 Mean Ox Delivery Rate 10/19 1510 98.7 99 20 120/80 95 10/19 0620 97.6 87 18 144/76 95 Room Air 10/18 2205 96.6 92 20 140/82 95 Room Air 10/18 1800 98.1 100 19 142/80 96 Room Air Intake & Output 10/19 1600 10/19 0800 10/19 0000 10/18 1600 10/18 0810/18 0000 Intake Total 480 480 120 200 0 Output Total Balance 480 480 120 200 0 Intake, Oral 480 480 120 200 0 Patient 127 lb 127 lb Weight Weight Bed scale Measurement Method Well-developed, well-nourished female with mild distress distress Head: normocephalic, atraumatic Ears: Canals- rightclear; leftcerumen ; Tympanic Membranes-poorly visualized Nose: Septum-clear ; Turbinates- clear ; Airway-patent Oral cavity: Mucosa- clear Oropharynx: Posterior wall- clear Neck: supple Eyes: nystagmus left beating on right gaze; nystagmus - rotatory left beating on up gaze Head MRI 10/17/2017: No evidence of acute cerebral ischemia or hemorrhage. Chronic changes as described. Head CT 10/17/2017: No acute intracranial abnormality. 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 Assessment/Plan Assessment/Plan 1. Acute viral labyrinthitis 2. r/o hearing loss, left ear 3. Cerumen, left ear Patient was already on prednisone 60 mg taper and meclizine Patient may be discharged home today I will see patient in the office tomorrow, removed cerumen and to administer hearing test for better evaluation of the hearing loss. If there is sensorineural hearing loss, I will prescribe acyclovir. For discharge, please prescribe prednisone taper, meclizine, and possibly Zofran if patient continues to have nausea. Consult Acknowledgment - Thank you for your consult request. Patient was already on prednisone 60 mg taper and meclizine Patient may be discharged home today I will see patient in the office tomorrow, removed cerumen and to administer hearing test for better evaluation of the hearing loss. If there is sensorineural hearing loss, I will prescribe acyclovir. For discharge, please prescribe prednisone taper, meclizine, and possibly Zofran if patient continues to have nausea. Consult Acknowledgment - Thank you for your consult request.
[2017-10-19] MEDS ORDERED: ZOFRAN4 M2 PO (16:28)
--- NOTE | 2017-10-19 16:59 | Discharge Summary ---
Visit Information Visit Dates Admission Date: 10/17/17 Discharge Date: 10/19/17 Hospital Course Course Attending Physician: Sharri Mar MD Primary Care Physician: Unknown Hospital Course: The patient is 72-year-old female with no past medical history she presented to [facility] on 10/17 with 2 day history of dizziness, spinning sensation, nausea, vomiting, tingling and hearing loss in left ear. She gave history of a recent URI. The patient was admitted to general medicine floor for treatment evaluation of acute vertigo. Presenting vitals were significant for elevated blood pressure on Autocuff however manual readings were within normal limits. Admission labs were unremarkable the toxicology screen was clear. On examination there was no neurological deficit however horizontal nystagmus was present. Chest x-ray was done which was also unremarkable. CT scan did not show any acute intracranial abnormality and was positive for mild white matter changes of chronic microangiopathic. MRI was also negative for any acute cerebral ischemia or hemorrhage and showed some chronic changes seen in MRI report for more details. The patient was diagnosed with acute viral labyrinthitis and treated with prednisone taper, meclizine and diazepam. Her nausea was controlled with Zofran. Patient was extremely unsteady on her feet and work with PT to perform the Nirmala maneuver as well. She was provided with a rolling walker prescription on discharge and was counseled to take fall precautions at home. Patient was also evaluated by Dr. Danyelle Ang, patient has appointment scheduled with Dr. Ang on 10/20 for evaluation of hearing loss and removal of cerumen. Patient was full code during her stay Allergies: Coded Allergies: Penicillins (UNKNOWN 10/17/17) Pertinent Lab Results: MRI of the brain was obtained using routine sequences before and after the intravenous administration of 6 mL of Gadavist. FINDINGS: There is a nearly 2 cm heavily calcified mixed signal intensity lesion in the left cerebellum with associated enhancement, presumably representing a cavernous angioma, perhaps with a small nearby developmental venous anomaly. There is some surrounding gliotic change with atrophy of the left middle cerebellar peduncle, perhaps due to prior hemorrhage. Moderate chronic microvascular ischemic changes are seen throughout the supratentorial white matter with an area of chronic lacunar infarction in the right frontal lobe. The ventricles and sulcal spaces are mildly prominent due to chronic volume loss. No focal reduced diffusion is seen to suggest acute or subacute cerebral ischemia. No midline shift or extra-axial collection is visualized. The ventricles and sulcal spaces appear normal. Normal arterial and venous vascular flow voids are present. The paranasal sinuses are well aerated. IMPRESSION: No evidence of acute cerebral ischemia or hemorrhage. Chronic changes as described. Disposition Summary Disposition Principal Diagnosis: acute viral labyrinthitis Additional Diagnosis: none Discharge Disposition: home or self care Discharge Instructions General Discharge Information Code Status: Full Code Patient's Diet: As tolerated Patient's Activity: As tolerated Follow-Up Instructions/Appts: Follow-up with primary care physician after discharge and follow-up with ENT after discharge Medications at Discharge Discharge Medications: Continue taking these medications: Ascorbic Acid (Vitamin C) 1,000 MG TABLET 1 Tablet ORAL Every Day Comments: NOT GIVEN Aspirin (Ecotrin*) 81 MG TABLET.DR 1 Tablet ORAL DAILY Comments: Last Taken: 10/19/17 Time: 1000AM Calcium Carbonate/Vitamin D3 (Os-Lupillo 500+D3 Caplet) 500 MG-200 TABLET 1 Tablet ORAL DAILY Comments: NOT GIVEN Cyanocobalamin (Vitamin B-12) (Vitamin B12) 2,500 MCG TABLET 1 Tablet ORAL Every Day Comments: NOT GIVEN Start taking the following new medications: Prednisone (Prednisone) 10 MG TABLET 0 ORAL SEE INSTRUCTIONS Qty = 30 No Refills Instructions: . Comments: Last Taken: 10/19/17 Time: 1000AM TAKE 40MG 4 PILLS ON 10/20 TO 10/22 TAKE 30MG 3 PILLS ON 10/23 TO 10/25 TAKE 20MG 2 PILLS ON 10/26 TO 10/28 TAKE 10MG 1 PILL ON 10/29 TO 10/31 Meclizine HCl (Meclizine HCl) 25 MG TABLET 1 Tablet ORAL THREE TIMES DAILY as needed for VERTIGO Qty = 21 No Refills Instructions: . Comments: Last Taken: 10/18/17 Time: 900AM Diazepam (Diazepam) 2 MG TABLET 1 Tablet ORAL TWICE DAILY as needed for VERTIGO Qty = 6 No Refills Instructions: TAKE NEEDED FOR VERTIGO Comments: NOT GIVEN Ondansetron HCl (Zofran) 4 MG TABLET 1 Tablet ORAL Every 6-8 Hours as Needed Qty = 5 No Refills Comments: NOT GIVEN Copies To: Ervin WHITLOCK,Danyelle Presley MD, MD Review Statement Documenting Attending: Sharri Mar MD
== END 2017-10-19 17:46 | DRG 149 ==
LOC: ERH 08:08 → ERHI 18:39 → 2NA 18:39 → ENRESERV 20:39 → ENTRNSPT 21:13 → EDTRNSPT 21:18 → EDTRNSPTSTS 21:18 → 2NA 21:24 → CMPTRNSPT 21:32 → 2NA 10-18 07:52 → ENTRNSPT 10-19 17:26 → 2NA 10-19 17:46 → CMPTRNSPT 10-19 17:51
PROVIDERS: Student in an Organized Health Care Education/Training Program
DX: H83.09 Labyrinthitis, unspecified ear (principal); F17.210 Nicotine dependence, cigarettes, uncomplicated; H61.22 Impacted cerumen, left ear; R42 Dizziness and giddiness; Z72.89 Other problems related to lifestyle; R11.0 Nausea; I10 Essential (primary) hypertension; Z88.0 Allergy status to penicillin
CPT/HCPCS: 2NASP; 70552; 36592; 70553; 71046; 80307; 81001; 82436; 93005; 93010; 96374; 96376; 97112-GO; 97116-GO; 97161-GP; A9579; G0480; J0131; J1650; J2405; J3101